=== PATIENT | female | born 1975 | race Caucasian/White ===

== ENCOUNTER 2019-08-02 18:55 | Emergency (ER) | payer BC, OTHER ==
[2019-08-02] MEDS ORDERED: XYLOCAINE 1% HCL 20 ML MDV IJ ONE (18:56)
--- NOTE | 2019-08-02 19:28 | ERPHSYRPT ---
- History of Present Illness Time Seen by Provider: 08/02/19 19:28 Source: patient, family Exam Limitations: no limitations Physician History: This is a 44-year-old white female who was seen earlier today by her nurse practitioner, Naya Peralta, and diagnosed with bronchitis possible early pneumonia. No chest x-ray was obtained. The patient did not want a chest x- ray at that time or at this visit. However, the patient is not feeling much better and is concerned about her coughing. Patient did take Tessalon Perles, was given an intramuscular steroid shot and took to tablets of azithromycin. Patient is here at this time for management of her persistent cough. Was given a prescription for promethazine/dextromethorphan cough medicine. She was told not to take this medicine until the evening. She was also told not to take any more steroids until tomorrow. Patient is a smoker of cigarettes. Timing/Duration: today Cough Quality/Degree: moderate, dry cough Possible Cause: occasional episodes Associated Symptoms: cough, nasal congestion, No fever, No chills, No chest pain /soreness, No headache, No shortness of breath, No sore throat Allergies/Adverse Reactions: NKA Allergy (Verified 08/02/19 19:33) - Review of Systems Constitutional: No Symptoms Eyes: No Symptoms Ears, Nose, & Throat: No Symptoms Respiratory: Cough Cardiac: No Symptoms, No Chest Pain Abdominal/Gastrointestinal: No Symptoms, No Abdominal Pain, No Nausea, No Vomiting, No Diarrhea Genitourinary Symptoms: No Symptoms Musculoskeletal: No Symptoms Skin: No Symptoms Neurological: No Symptoms Psychological: No Symptoms Endocrine: No Symptoms Hematologic/Lymphatic: No Symptoms Immunological/Allergic: No Symptoms All Other Systems: Reviewed and Negative - Past Medical History Neurological History: No Pertinent History ENT History: No Pertinent History Cardiac History: No Pertinent History Respiratory History: No Pertinent History Endocrine Medical History: No Pertinent History Musculoskeletal History: No Pertinent History GI Medical History: No Pertinent History History: No Pertinent History Psycho-Social History: No Pertinent History Female Reproductive Disorders: No Pertinent History - Nursing Vital Signs Nursing Vital Signs: Initial Vital Signs Temperature 99.1 F 08/02/19 19:16 Pulse Rate 110 H 08/02/19 19:16 Respiratory Rate 20 08/02/19 19:16 Blood Pressure 140/91 08/02/19 19:16 O2 Sat by Pulse Oximetry 95 08/02/19 19:16 Pain Scale Pain Intensity 6 - Physical Exam General Appearance: mild distress, alert, anxiety Eye Exam: PERRL/EOMI, eyes nml inspection Ears, Nose, Throat Exam: normal ENT inspection, moist mucous membranes Neck Exam: normal inspection, non-tender, supple, full range of motion Respiratory Exam: normal breath sounds, lungs clear, airway intact, No chest tenderness, No respiratory distress Cardiovascular Exam: tachycardia Gastrointestinal/Abdomen Exam: soft, normal bowel sounds, No tenderness, No guarding, No rebound Pelvic Exam: not done Rectal Exam: not done Back Exam: normal inspection, normal range of motion, No CVA tenderness, No vertebral tenderness Extremity Exam: normal inspection, normal range of motion, pelvis stable Neurologic Exam: alert, oriented x 3, cooperative, marketing analytics manager II-XII nml as tested, normal mood/affect, nml cerebellar function, nml station & gait Skin Exam: normal color, warm, dry Lymphatic Exam: adenopathy SpO2 Interpretation: normal O2 Delivery: Room Air - Course Nursing assessment & vital signs reviewed: Yes Ordered Tests: Medication Summary Discontinued Medications Generic Name Dose Route Start Last Admin Trade Name Wong PRN Reason Stop Dose Admin Hydrocodone Bitart/Acetaminophen 10 ml 08/02/19 19:56 Hydrocodone-Acetamin 2.5-108/5 Ml Solution PO 08/02/19 19:57 STAT STA Hydrocodone Bitart/Acetaminophen Confirm 08/02/19 20:04 Hydrocodone-Acetamin 2.5-108/5 Ml Solution Administered 08/02/19 20:05 Dose 10 ml .ROUTE .STK-MED ONE Ceftriaxone Sodium 1,000 mg 08/02/19 19:56 Rocephin 1000 Mg Inj IM 08/02/19 19:57 STAT ONE Ceftriaxone Sodium Confirm 08/02/19 20:04 Rocephin 1000 Mg Inj Administered 08/02/19 20:05 Dose 1,000 mg .ROUTE .STK-MED ONE - Progress Progress: re-examined, unchanged Air Movement: good Progress Note: 08/02/19 20:14 This patient's treatment plan prior to arrival here in the emergency room is appropriate for bronchitis or pneumonia. I do not feel that the patient has given herself enough time and she is very anxious. I believe we can help her with her symptoms by giving her an injection of intramuscular Rocephin and providing her with Lortab elixir dose. Blood Culture(s) Obtained: No Antibiotics given: Yes Counseled pt/family regarding: lab results, diagnosis, need for follow-up - Departure Departure Disposition: Home Clinical Impression: Bronchitis Condition: Stable Critical Care Time: No Referrals: NICK MCGILL MD [Primary Care Provider] - Additional Instructions: Drink plenty of fluids. Avoid any exposure to any type of smoke. Take your medications as prescribed. Follow-up with your medical provider as needed
[2019-08-02 19:31] VITALS: O2SAT 95
[2019-08-02] MEDS ORDERED: HYDROCODONE-ACETAMIN 2.5-108/5 ML SOLUTION PO STA (19:56)
[2019-08-02] MEDS ORDERED: Rocephin 1000 MG INJ IM ONE (19:56)
[2019-08-02] MEDS ORDERED: HYDROCODONE-ACETAMIN 2.5-108/5 ML SOLUTION ONE (20:04)
[2019-08-02] MEDS ORDERED: Rocephin 1000 MG INJ ONE (20:04)
[2019-08-02 20:27] VITALS: BP 125/87; PULSE 109
== END 2019-08-02 20:29 | disposition home or self-care (01) ==
LOC: ED 18:55
DX: J40 Bronchitis, not specified as acute or chronic (principal)
CPT/HCPCS: 96372; 99283; J0696; A9270-GY